=== PATIENT | male | born 1985 | race Caucasian/White ===

== ENCOUNTER 2019-06-01 05:14 | Emergency (ER) | payer OTHER ==
[~2019-06-01] VITALS: Ht 175.3 cm; Wt 141.0 kg
--- NOTE | 2019-06-01 05:44 | NUR ---
Pt reports developing sweats 2 days ago. Pt then reports nausea and diarrhea that started yesterday, pt denies vomiting. Pt then reports having a cough today with some SOB. Pt denies chest pain, leg swelling, or any recent abx.
[2019-06-01 05:54] VITALS: BP 151/102
== END 2019-06-01 06:05 | disposition home or self-care (01) ==
LOC: ED 05:43
DX: R19.7 Diarrhea, unspecified (principal); R11.0 Nausea; Z88.0 Allergy status to penicillin
CPT/HCPCS: 93005; 99283